=== PATIENT | male | born 1955 | race Caucasian/White ===

== ENCOUNTER 2020-04-15 21:26 | Emergency (ER) | payer MEDICARE ==
[~2020-04-15] VITALS: Ht 180.3 cm; Wt 93.2 kg
[~2020-04-15 21:26] MED LIST: ATENOLOL25 MG PO; LIPITOR40 MG PO; METFORMIN1000 MG PO
[2020-04-15] MEDS ORDERED: TRAMADOL HCL50 MG PO (22:32)
[2020-04-15 23:45] VITALS: BP 121/55
== END 2020-04-15 23:45 | disposition home or self-care (01) ==
LOC: ED 21:26
PROC: 2W3RX1Z Immobilization of Left Lower Leg using Splint (ICD-10-PCS; principal; 2020-04-15)
DX: S82.62XA Displaced fracture of lateral malleolus of left fibula, initial encounter for closed fracture (principal); E11.9 Type 2 diabetes mellitus without complications; I10 Essential (primary) hypertension; Z79.84 Long term (current) use of oral hypoglycemic drugs; F17.200 Nicotine dependence, unspecified, uncomplicated; W10.9XXA Fall (on) (from) unspecified stairs and steps, initial encounter; Y92.009 Unspecified place in unspecified non-institutional (private) residence as the place of occurrence of the external cause

== ENCOUNTER 2020-11-16 12:35 | Emergency (ER) | payer OTHER, MEDICARE ==
[~2020-11-16] VITALS: Ht 180.3 cm; Wt 129.0 kg
[~2020-11-16 12:35] MED LIST changes: +TRAMADOL HCL50 MG PO
[2020-11-16] MEDS ORDERED: GLIPIZIDE5 MG PO (12:48)
[2020-11-16 15:14] VITALS: BP 138/88
== END 2020-11-16 15:20 | disposition home or self-care (01) | DRG 563 ==
LOC: ED 12:35
DX: S46.912A Strain of unspecified muscle, fascia and tendon at shoulder and upper arm level, left arm, initial encounter (principal); S60.812A Abrasion of left wrist, initial encounter; E11.9 Type 2 diabetes mellitus without complications; I10 Essential (primary) hypertension; F17.200 Nicotine dependence, unspecified, uncomplicated; V89.2XXA Person injured in unspecified motor-vehicle accident, traffic, initial encounter; Z79.84 Long term (current) use of oral hypoglycemic drugs

== ENCOUNTER 2022-10-15 08:28 | Day surgery (SDC) | payer MEDICARE ==
[~2022-10-15] VITALS: Ht 180.3 cm; Wt 98.9 kg
[~2022-10-15 08:28] MED LIST changes: +GLIPIZIDE5 MG PO; +JARDIANCE25 MG; +LANTUS100 UNIT; +NORVASC5 M1 PO; +OMEPRAZOLE20 MG PO; +PIOGLITAZONE HC30 MG; +PROAIR HFA IN
[2022-10-15 10:58] VITALS: BP 130/64
== END 2022-10-15 12:03 | disposition home or self-care (01) ==
LOC: ENDO 08:28 → ORM 10:15 → ENDO 10:15
PROVIDERS: ATTEND Surgery
PROC: 0DJD8ZZ Inspection of Lower Intestinal Tract, Via Natural or Artificial Opening Endoscopic (ICD-10-PCS; principal; 2022-10-15)
DX: R19.5 Other fecal abnormalities (principal); K64.8 Other hemorrhoids; E11.9 Type 2 diabetes mellitus without complications; Z79.84 Long term (current) use of oral hypoglycemic drugs; Z79.4 Long term (current) use of insulin